=== PATIENT | male | born 1940 | race Caucasian/White ===

== ENCOUNTER → 2016-11-06 | Outpatient (CLI) | payer OTHER ==
--- NOTE | 2016-11-06 13:15 | CR ---
EXAMINATION: Bilateral knees HISTORY: Pain COMPARISON: None TECHNIQUE: 4 views bilaterally FINDINGS: Moderate joint space narrowing within the lateral compartment of the right knee mild joint space narrowing within the medial compartment of the left knee. Osteophyte formation is noted bilat erally. No fracture or acute osseous abnormality. No significant joint effusion or soft tissue swell ing. Bone mineralization is grossly normal. IMPRESSION: Degenerative changes noted bilaterally, right greater than left.
== END ==
LOC: MW.CHORTHO 07:58
PROVIDERS: ATTEND Physician Assistant
DX: M25.561 Pain in right knee (principal); M25.562 Pain in left knee
CPT/HCPCS: 735642650; 73564-50

== ENCOUNTER 2016-12-12 08:13 | Day surgery (SDC) | payer OTHER ==
[~2016-12-12 08:13] MED LIST: Lactated Ringers 1,000 ML IV SCH; Midazolam 1 MG/ML 2 ML SDV ONE; Propofol 200 MG/20 ML SDV ONE; fentaNYL 100 MCG/2 ML SDV ONE
--- NOTE | 2016-12-12 09:02 | PCM.PREANE ---
Preanesthetic Assessment - Anesthesia/Transfusion/Family Hx Anesthesia History: Prior Anesthesia Without Reaction Other Type of Anesthesia Reaction Comment: Denies any problems in the past Family History of Anesthesia Reaction: No Transfusion History: No Prior Transfusion(s) Intubation History: Unknown - Review of Systems General: No Symptoms Pulmonary: No Symptoms Cardiovascular: No Symptoms Neurological: No Symptoms Other: Reports: None - Physical Assessment O2 Sat by Pulse Oximetry: 99 Respiratory Rate: 16 Vital Signs: Last Vital Signs Temp Pulse 56 L 12/12/16 08:21 Resp 16 12/12/16 08:21 BP 130/73 12/12/16 08:21 Pulse Ox 99 12/12/16 08:21 Height: 1.8 m Weight: 75.75 kg ASA Class: 3 Mental Status: Alert & Oriented x3 Airway Class: Mallampati = 2 Dentition: Reports: Normal Dentition Thyro-Mental Finger Breadths: 2 Mouth Opening Finger Breadths: 3 ROM/Head Extension: Full Lungs: Clear to auscultation, Normal respiratory effort Cardiovascular: Regular Rate, Regular Rhythm - Allergies Allergies/Adverse Reactions: Allergies Allergy/AdvReac Type Severity Reaction Status Date / Time Penicillins Allergy Itching Verified 11/16/13 09:49 - Blood Blood Available: No - Anesthesia Plan Pre-Op Medication Ordered: None - Acknowledgements Anesthesia Type Planned: MAC Pt an Appropriate Candidate for the Planned Anesthesia: Yes Alternatives and Risks of Anesthesia Discussed w Pt/Guardian: Yes Pt/Guardian Understands and Agrees with Anesthesia Plan: Yes PreAnesthesia Questionnaire HEENT History: Reports: Allergic Rhinitis, Other (See Below) Other HEENT History: wears glasses Cardiovascular History: Reports: High Cholesterol, Hypertension Gastrointestinal History: Reports: Colon Polyp, Diverticulosis, Other (See Below ) Other Gastrointestinal History: occasional heartburn Genitourinary History: Reports: BPH Musculoskeletal History: Reports: Osteoarthritis, Other (See Below) Other Musculoskeletal History: leg pain Endocrine/Metabolic History: Reports: Hypothyroidism Oncologic (Cancer) History: Reports: Basal Cell Carcinoma Dermatologic History: Reports: None - Past Surgical History Head Surgeries/Procedures: Reports: None GI Surgical History: Reports: Colonoscopy (3 years ago) Musculoskeletal Surgical History: Reports: Hip Replacement, Other (See Below) Other Musculoskeletal Surgeries/Procedures:: hx reina hip replacement, bunionectomy Dermatological Surgical History: Reports: Skin Biopsy - SUBSTANCE USE Smoking Status *Q: Former Smoker Days Per Week of Alcohol Use: 0 Number of Drinks Per Day: 1 Total Drinks Per Week: 0 Recreational Drug Use History: No - HOME MEDS Home Medications: Home Meds Calcium Carbonate [Tums] 200 mg PO ASDIRECTED PRN 11/16/13 [History] Levothyroxine 25 mcg PO ACBRK 11/16/13 [History] Simvastatin [Zocor] 80 mg PO BEDTIME 11/16/13 [History] amLODIPine Besylate [Amlodipine Besylate] 0.5 tab PO ACBRK 11/16/13 [History] Gabapentin [Neurontin] 100 mg PO BEDTIME PRN 12/10/16 [History] Meloxicam 0.5 tab PO DAILY 12/10/16 [History] Tamsulosin HCl [Flomax] 0.4 mg PO DAILY 12/10/16 [History] - CURRENT (IN HOUSE) MEDS Current Meds: Current Medications Lactated Ringer's (Ringers, Lactated) 1,000 mls @ 125 mls/hr IV ASDIRECTED JUANCHO Last Admin: 12/12/16 08:26 Dose: 125 mls/hr Discontinued Medications Fentanyl (Sublimaze) Confirm Administered Dose 100 mcg .ROUTE .STK-MED ONE Stop: 12/12/16 07:10 Midazolam HCl (Versed 1 Mg/Ml) Confirm Administered Dose 2 mg .ROUTE .STK-MED ONE Stop: 12/12/16 07:10 Propofol (Diprivan 20 Ml) Confirm Administered Dose 200 mg .ROUTE .STK-MED ONE Stop: 12/12/16 07:10
[2016-12-12] MEDS ORDERED: ePHEDrine 50 MG/ML SDV ONE (09:17)
[2016-12-12] MEDS ORDERED: Lactated Ringers 1,000 ML IV SCH (09:45)
--- NOTE | 2016-12-12 09:48 | PCM.OPNOTE ---
- General Post-Op/Procedure Note Date of Surgery/Procedure: 12/12/16 Operative Procedure(s): Colonoscopy with cold ascending colon polypectomy Pre Op Diagnosis: Personal history of colon polyps. Change in stool caliber. Post-Op Diagnosis: Ascending colon polyp. Sigmoid diverticulosis. Anesthesia Technique: MAC (ASA III) Primary Surgeon: Ritesh Lomax Condition: Good Free Text/Narrative:: Dictation [id number]. CPT 34438
--- NOTE | 2016-12-12 10:12 | PCM.POSTAN ---
POST ANESTHESIA ASSESSMENT - MENTAL STATUS Mental Status: alert - RESPIRATORY Respiratory Status: respiratory rate WNL, airway patent, O2 saturation stable - CARDIOVASCULAR CV Status: pulse rate WNL, blood pressure stable - GASTROINTESTINAL GI Status: no symptoms - POST OP HYDRATION Hydration Status: adequate & stable - OBSERVATIONS Free Text/Narrative:: no anesthesia problems
[2016-12-12 10:16] VITALS: BP 108/47
--- NOTE | 2016-12-12 14:13 | OR ---
SURGEON: Ritesh Lomax M.D. DATE OF PROCEDURE: 12/12/2016 OPERATION PERFORMED: Colonoscopy with cold ascending colon polypectomy. ANESTHESIA: MAC. ASA CLASSIFICATION: III. PREOPERATIVE DIAGNOSIS: Personal history of colon polyps, change in stool caliber. POSTOPERATIVE DIAGNOSES: 1. Small ascending colon polyp. 2. Sigmoid diverticulosis. DESCRIPTION OF PROCEDURE: The patient was taken to the endoscopy room and positioned on the endoscopy table in the left lateral decubitus position. Time-out was called for appropriate identification of the patient and procedure. Monitored anesthesia care was provided. The colonoscope was inserted into the rectum and advanced with minimal difficulty to the cecum where the colonoscope was retroflexed to visualize the ascending colon from below. The colonoscope was then straightened and slowly withdrawn. One small polyp was encountered in the ascending colon. This was removed with multiple bites of the cold biopsy forceps. No significant bleeding was noted. The remainder of the ascending colon, hepatic flexure, transverse colon, splenic flexure, and descending colon showed no tumors, polyps, diverticula, angiodysplasia, or evidence of inflammatory bowel disease. Sigmoid colon demonstrates diverticular changes. No stricture, spasm, or bleeding was noted. Once the colonoscope was withdrawn to the rectum, it was retroflexed to visualize the anal orifice from above. Again, no tumors or polyps were seen and there were no acute hemorrhoidal changes. The colonoscope was then straightened, the rectum aspirated, and the colonoscope removed. The patient tolerated the procedure well and was taken to recovery room in stable condition. CHUN HU /[id number] cc: [facility]
== END 2016-12-12 10:21 | disposition home or self-care (01) ==
LOC: MW.SDS 08:13
PROVIDERS: ATTEND Surgery
PROC: 0DBK8ZZ Excision of Ascending Colon, Via Natural or Artificial Opening Endoscopic (ICD-10-PCS; principal; 2016-12-12)
DX: Z12.11 Encounter for screening for malignant neoplasm of colon (principal); D12.2 Benign neoplasm of ascending colon; K57.30 Diverticulosis of large intestine without perforation or abscess without bleeding; Z86.010 Personal history of colon polyps; M19.90 Unspecified osteoarthritis, unspecified site; I10 Essential (primary) hypertension; E78.00 Pure hypercholesterolemia, unspecified; E03.9 Hypothyroidism, unspecified; M17.0 Bilateral primary osteoarthritis of knee; N40.0 Benign prostatic hyperplasia without lower urinary tract symptoms; Z85.828 Personal history of other malignant neoplasm of skin; Z87.891 Personal history of nicotine dependence; Z88.0 Allergy status to penicillin; Z79.899 Other long term (current) drug therapy; Z96.643 Presence of artificial hip joint, bilateral; Z98.890 Other specified postprocedural states
CPT/HCPCS: 45380; J2250; J3010; J7120; 00810; 88305; J2704